=== PATIENT | male | born 1990 | race Two or more races ===

== ENCOUNTER 2019-05-01 03:54 | Observation (INO) | payer MEDICAID ==
[~2019-05-01] VITALS: Ht 170.2 cm; Wt 62.6 kg
[2019-05-01] MEDS ORDERED: LORazepam Inj 2mg/ml 1ml IV ONE (04:00)
--- NOTE | 2019-05-01 04:03 | Emergency Room Report ---
History of Present Illness General Chief Complaint: Nausea, Vomiting, and Diarrhea Source: Friend Present Illness HPI Is a 29-year-old male with some type of psychiatric history. He was brought in by girlfriend for altered mental status with vomiting shortness of breath. Patient had [place] some [place] the [place]. He started throwing up and acting abnormal. They brought him here. Unable to get much of history from this patient. He complained abdominal pain. He said he is short of breath and tried and vomit. Denies any bloody emesis. No diarrhea. Onset tonight. No other history obtained from this patient. History is from his girlfriend. Allergies: Coded Allergies: No Known Allergies (Unverified , 05/01/19) Patient History Past Medical History: see triage record, old chart reviewed, psych hx Past Surgical History: other Pertinent Family History: none Social History: Reports: smoking Immunizations: other Reviewed Nursing Documentation: PMH: Agreed; PSxH: Agreed Review of Systems Eye: Denies: eye pain, blurred vision ENT: Denies: ear pain, nose congestion, throat swelling Respiratory: Denies: cough, shortness of breath Cardiovascular: Denies: chest pain, palpitations Gastrointestinal: Reports: abdominal pain, nausea, vomiting; Denies: diarrhea Musculoskeletal: Denies: back pain, joint pain Skin: Denies: rash Neurological: Denies: headache, numbness Endocrine: Denies: increased thirst, increased urine Hematologic/Lymphatic: Denies: easy bruising All Other Systems: negative except mentioned in HPI Physical Exam Sp02 EP Interpretation: reviewed, normal General Appearance: well appearing, no apparent distress, alert Head: normocephalic, atraumatic Eyes: bilateral eye PERRL, bilateral eye EOMI ENT: hearing grossly normal, normal pharynx Neck: full range of motion, supple, no meningismus Respiratory: chest non-tender, lungs clear, normal breath sounds Cardiovascular #1: regular rate, rhythm, no murmur Gastrointestinal: no mass, no organomegaly, no bruit, non-distended, tenderness - Diffuse, decreased bowel sounds Musculoskeletal: back normal, normal range of motion Psychiatric: anxious Medical Decision Making Diagnostic Impression: Primary Impression: Abdominal pain Qualified Codes: R10.84 - Generalized abdominal pain Additional Impression: 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 He was very anxious. This is probably secondary induced by his cannabis use. He is sleeping comfortably now. Vital signs are stable. No evidence of toxicity. Will discharge home once he is better. Status: improved Disposition: HOME, SELF-CARE Condition: Stable Additional Instructions: Follow-up with in 7 days. Return if symptoms worsen. Leonardo Quiroz MD May 01, 2019 04:02
[2019-05-01 04:10] VITALS: BP 142/83
--- NOTE | 2019-05-01 04:10 | NUR ---
ED Nurse Note: Pt is AAOX1, vss, with no injuries noted. Pt came to ER c/o n/v and abd pain since 0300. Per significant other, pt was smoking weed, unk amount, and was vomiting afterwards. Pt is activly vomiting and bearing down. Per signficant other, pt was short of breath.
[2019-05-01] MEDS ORDERED: Ketorolac 30mg Inj IV ONE (04:15)
[2019-05-01 04:19] LABS: ANION GAP 11 mmol/L (5-15); BLOOD UREA NITROGEN 8 mg/dL (7-18); CALCIUM 9.3 MG/DL (8.5-10.1); CARBON DIOXIDE 27 MMOL/L (21-32); CHLORIDE 105 MMOL/L (98-107); CREATININE 1.1 MG/DL (0.55-1.30); POTASSIUM 3.6 MMOL/L (3.5-5.1); SODIUM 143 MMOL/L (136-145)
--- NOTE | 2019-05-01 04:20 | NUR ---
ED Nurse Note: Blood and urine sent to lab.
[2019-05-01 04:21] LABS: ALANINE AMINOTRANSFERASE 21 U/L (12-78); ALBUMIN/GLOBULIN RATIO 1.3 (1.0-2.7); ALKALINE PHOSPHATASE 113 U/L (46-116); ASPARTATE AMINO TRANSFERASE 18 U/L (15-37); BILIRUBIN,TOTAL 0.3 MG/DL (0.2-1.0)
[2019-05-01 04:22] LABS: EOSINOPHILS % (AUTO) 1.4 % (0.0-3.0); HEMATOCRIT 43.2 % (42.0-52.0); HEMOGLOBIN 15.8 G/DL (14.2-18.0); LYMPHOCYTES % (AUTO) 22.6 % (20.0-45.0); MEAN CORPUSCULAR VOLUME 89 FL (80-99); PLATELET COUNT 272 K/UL (150-450); RED BLOOD COUNT 4.83 M/UL (4.70-6.10); RED CELL DISTRIBUTION WIDTH 10.1 % (11.6-14.8); WHITE BLOOD COUNT 14.4 K/UL (4.8-10.8)
--- NOTE | 2019-05-01 04:25 | NUR ---
ED Nurse Note: Pt makes very loud throat noise when he wakes with very secretions. Suction is used to clear any obstructions. Minimal secretions collected.
--- NOTE | 2019-05-01 04:32 | NUR ---
ED Nurse Note: Pt no longer vomiting and bearing down. Pt is resting.
[2019-05-01 04:45] LABS: APPEARANCE,URINE CLEAR; BILIRUBIN, URINE NEGATIVE (NEGATIVE); GLUCOSE, URINE (UA) NEGATIVE (NEGATIVE); KETONES,URINE 1+ (NEGATIVE); LEUKOCYTE ESTERASE ,URINE NEGATIVE (NEGATIVE); NITRITE,URINE NEGATIVE (NEGATIVE); PH,URINE 6 (4.5-8.0); UROBILINOGEN,URINE 1 MG/DL (0.0-1.0)
[2019-05-01 04:52] LABS: COLOR,URINE YELLOW; PROTEIN,URINE NEGATIVE (NEGATIVE)
--- NOTE | 2019-05-01 05:20 | NUR ---
Araseli watson in EDM - 05/01/19 at 0520 by [email or web address] ED Nurse Note: Pt is resti
--- NOTE | 2019-05-01 05:20 | NUR ---
ED Nurse Note: Pt is resti
--- NOTE | 2019-05-01 05:33 | NUR ---
ED Nurse Note: Pt contiues to makes very loud throat noise when he wakes with very secretions.
--- NOTE | 2019-05-01 06:17 | NUR ---
ED Nurse Note: Pt resting at this time.
[2019-05-01] MEDS ORDERED: Promethazine HCl 25 MG in NS 55 ML IVPB STA (06:26)
--- NOTE | 2019-05-01 06:30 | NUR ---
ED Nurse Note: Pt vomited 15ml and went back to sleep.
--- NOTE | 2019-05-01 07:10 | NUR ---
Araseli watson in ED - 05/01/19 at 0710 by [email or web address] HAND-OFF: Report given to
--- NOTE | 2019-05-01 07:10 | NUR ---
HAND-OFF: Report given to
[2019-05-01 07:15] VITALS: BP 142/65
--- NOTE | 2019-05-01 07:20 | NUR ---
ED Nurse Note: PT RESTING ON BED AND STILL UNABLE TO AMBULATE AT THIS TIME. NSR ON INFORMATION COORDINATOR AND RESPIRATIONS ARE EVEN AND NON LABORED.
--- NOTE | 2019-05-01 08:26 | NUR ---
ED Nurse Note: TRIED TO CALL BROTHER TURNER ACUNA. NO ANSWER, LEFT A VOICEMAIL. [phone].
[2019-05-01 09:10] VITALS: BP 117/56
[2019-05-01 11:00] VITALS: BP 119/65
--- NOTE | 2019-05-01 11:57 | NUR ---
ED Nurse Note: PT TRANSPORTED TO MED SURG UNIT WITH ALL HIS BELONGINGS SENT. PT IS STABLE.
[2019-05-01] MEDS ORDERED: Metoclopramide 10mg/2ml Inj IVP PRN (12:15)
[2019-05-01] MEDS ORDERED: Morphine Sulfate 2mg/ml Inj(IV/IM USE ONLY) IVP PRN (12:15)
[2019-05-01] MEDS ORDERED: Miralax 17gm pkt ORAL PRN (12:15)
[2019-05-01] MEDS ORDERED: LORazepam Inj 2mg/ml 1ml IV PRN (12:15)
[2019-05-01] MEDS ORDERED: Nitroglycerin Subl 0.4mg tab SL PRN (12:15)
--- NOTE | 2019-05-01 12:57 | NUR ---
NURSE NOTES: Pt arrived from ER in altered state is able to answer questions when awake. Quickly falls asleep while talking. Pt verbalized chest pain Dr Oneil made aware . DR asked if ekg or troponin level needed to be drawn, Dr Oneil replied no gave orders for D5 1/2 NS at 75 cc / hour. Place pt NPO. Pt is having dry heaves, turns and spits on self. Pt is sleeping but arouses when name is called. Unable to fully cooperate with admission questions, pt does not stay awake long enough to respond. Oxygen placed on pt at 2 liters , provided with basin for possible vomitus.
--- NOTE | 2019-05-01 13:10 | NUR ---
NURSE NOTES: Call placed to Dr Chris voicemail left for Dr to return call to facility.
[2019-05-01] MEDS: D5 1/2NS 1,000 ML IV SCH (14:07)
--- NOTE | 2019-05-01 14:36 | NUR ---
NURSE NOTES: Pt is currently sleeping vomitus times 2 red in color, with possible digested blood particles, . Charge Nurse made aware and assessed output. No odor. Complaining of chest pain as well as abdominal pain. made aware of pt verbalizations of chest Pain 10/10 radiating to his stomach. , ER did not render EKG aware did not give orders to render one, troponin level. made aware per report of ER nurse pt became n/v after smoking "weed" . Pt denied anything other than smoking weed, any other illicit, substance. Pt given Morphine 2 mg and Zofran IV push. Currently sleeping. Dr Chris did not give any further instructions or orders. Call light in reach, linens completely changed. Rt IV inner forearm dislodge. Pt has left ac intact
--- NOTE | 2019-05-01 15:46 | History & Physical ---
History and Physical History & Physicial Dictated for Int Med-Dr Chris no. [id number] Bao Ortiz MD May 01, 2019 15:46
[2019-05-01 16:00] VITALS: BP 156/86
--- NOTE | 2019-05-01 17:22 | Diagnostic Imaging Report ---
Indication: Abdominal pain, elevated white blood cells Technique: Siddiqi-scale and duplex images of the upper abdomen were obtained Comparison: none Findings: Gallbladder is unremarkable, without stones, wall thickening, nor pericholecystic fluid. Sonographic Vera's sign is negative. Common bile duct measures 6 mm in diameter. No intrahepatic biliary ductal dilatation. Liver demonstrates normal echogenicity, no focal abnormality. Portal vein and hepatic veins are patent. Pancreas is unremarkable. Spleen is unremarkable. Left kidney measures 10.5 cm in length. Right kidney measures 9.5 cm length. Both kidneys demonstrate normal echogenicity. There is no hydronephrosis. No focal abnormality . Non-aneurysmal abdominal aorta . Impression: Negative
--- NOTE | 2019-05-01 17:39 | NUR ---
NURSE NOTES: Pt girlfriend is here, attempted to ask girl friend if she knew what pt took in addition to Marijuana pt has some hallucinations " He just smokes allot of cigarettes. " " We just started dating and we were together but he just had cigarettes. " Pt girlfriend quickly left room and returned in 2 hours. " Can I take him home now' Girlfriend informed that pt does not have an order to go as yet. Pt asked if scenario writer could answer girl friends questions earlier in shift. Call placed to Dr Oneil to inform him that pt had vomitus x 2 appearing like digested blood. Awaiting return call
--- NOTE | 2019-05-01 18:05 | NUR ---
NURSE NOTES: Dr Oneil did not give further orders in regards to vomitus, NNO
--- NOTE | 2019-05-01 19:05 | NUR ---
NURSE NOTES: Dr Ruth phoned to be made aware that pt had episode of vomitus x two with appearance of digested blood
--- NOTE | 2019-05-01 19:54 | NUR ---
NURSE NOTES: Received patient in bed, asleep, no acute distress noted, IV site is clean dry and intact, call light is within reach, bed is in low position, locked and alarm is on. Will continue to monitor for comfort and safety.
[2019-05-01 20:00] VITALS: BP 102/60
--- NOTE | 2019-05-01 20:08 | NUR ---
HAND-OFF: Report given to Dianna PRO .
--- NOTE | 2019-05-01 20:11 | NUR ---
NURSE NOTES: oncoming nurse, made aware that Dr was contacted in regards to chest pain NNO
[2019-05-01] MEDS: Heparin 5000 units/ml inj SUBQ SCH (21:12)
--- NOTE | 2019-05-01 22:15 | History and Physical Report ---
DATE OF ADMISSION: 05/01/2019 CHIEF COMPLAINT: The patient is a 29-year-old male, who presents with a chief complaint of altered mental status. HISTORY OF PRESENT ILLNESS: The patient apparently was at the beach earlier today. The patient smoked marijuana. The patient was brought in to [facility] by his girlfriend. She was complaining of shortness of breath. Much of the history and physical is obtained from the patient's chart and the patient's girlfriend. Upon arrival at [facility], the patient's girlfriend stated he was acting more altered than usual. The patient was having nausea and vomiting. The patient also was short of breath. The patient was admitted for altered mental status to rule out overdose. REVIEW OF SYSTEMS: Unable to assess secondary to the patient's mental status. PAST MEDICAL HISTORY: Denies other than some sort of psychiatric diagnosis. PAST SURGICAL HISTORY: The patient denies. CURRENT MEDICATIONS: Denies. ALLERGIES: No known drug allergies. SOCIAL HISTORY: The patient is single. Lives with his girlfriend. Tobacco and alcohol use are unknown. PHYSICAL EXAMINATION: VITAL SIGNS: Temperature 97.4, respirations 16, pulse 71 to 115, and blood pressure 125 to 142/73. GENERAL: The patient is a well-developed and well-nourished male, who is arousable however very drowsy. HEENT: Eyes, pupils are equal and responsive to light and accommodation. Extraocular movements are intact. NECK: Supple without lymphadenopathy. CHEST: Lungs are clear to auscultation bilaterally without wheezes or rales. CARDIOVASCULAR: Regular rhythm and rate. S1, S2 are normal without murmurs, rubs, or gallops. ABDOMEN: Soft, nontender, and nondistended. Positive bowel sounds. No evidence of hepatosplenomegaly. Currently, no rebound or guarding noted. EXTREMITIES: Negative for clubbing, cyanosis, or edema. RECTAL/GENITAL: Not performed. GENITAL: Not performed. NEUROLOGIC: Cranial nerves II through XII are grossly intact without focal deficits. Motor strength is 5/5 bilaterally. Deep tendon reflexes are 2+ plantar. LABORATORY STUDIES: WBC 14.4, hemoglobin 15.8 hematocrit 43.2, and platelets 272,000. Sodium 143, potassium 3.6, chloride 105, CO2 27, BUN 8, creatinine 1.1, and glucose 115. Urine toxicology was positive for marijuana. Urinalysis showed 1+ ketones. ASSESSMENT: This is a 29-year-old male. 1. Altered mental status. 2. Nausea with vomiting. 3. Shortness of breath. TREATMENT: 1. Altered mental status. This may be secondary to marijuana use as above. Marijuana may have been laced with other substances including fentanyl. Urine drug screen was negative for drugs abuse. 2. Nausea/vomiting. The patient is currently NPO. The patient is receiving intravenous fluids. 3. Shortness of breath. This may be secondary to nausea and vomiting as above. Bao Ortiz M.D. DR: GLENNA JOB#: [id number] CC:
[2019-05-02] VITALS: BP 108/48
[2019-05-02] MEDS: D5 1/2NS 1,000 ML IV SCH (01:36)
[2019-05-02 04:00] VITALS: BP 111/56
[2019-05-02 06:45] LABS: BASOPHILS % (AUTO) 0.4 % (0.0-2.0); HEMATOCRIT 39.3 % (42.0-52.0); HEMOGLOBIN 13.9 G/DL (14.2-18.0); LYMPHOCYTES % (AUTO) 18.2 % (20.0-45.0); MEAN CORPUSCULAR VOLUME 91 FL (80-99); MONOCYTES % (AUTO) 6.9 % (1.0-10.0); NEUTROPHILS % (AUTO) 73.5 % (45.0-75.0); PLATELET COUNT 218 K/UL (150-450); RED CELL DISTRIBUTION WIDTH 10.3 % (11.6-14.8); WHITE BLOOD COUNT 8.6 K/UL (4.8-10.8)
[2019-05-02 06:54] LABS: ALANINE AMINOTRANSFERASE 18 U/L (12-78); ALBUMIN 3.1 G/DL (3.4-5.0); ALBUMIN/GLOBULIN RATIO 1.3 (1.0-2.7); ALKALINE PHOSPHATASE 78 U/L (46-116); AMYLASE 204 U/L (25-115); ANION GAP 7 mmol/L (5-15); ASPARTATE AMINO TRANSFERASE 17 U/L (15-37); BILIRUBIN,TOTAL 0.7 MG/DL (0.2-1.0); BLOOD UREA NITROGEN 7 mg/dL (7-18); CALCIUM 8.1 MG/DL (8.5-10.1); CARBON DIOXIDE 27 MMOL/L (21-32); CHLORIDE 108 MMOL/L (98-107); CREATININE 0.8 MG/DL (0.55-1.30); POTASSIUM 3.2 MMOL/L (3.5-5.1); SODIUM 142 MMOL/L (136-145)
--- NOTE | 2019-05-02 07:02 | NUR ---
HAND-OFF: Report given to [facility] PRO.
--- NOTE | 2019-05-02 07:30 | NUR ---
NURSE NOTES: Received pt from [facility]. Pt is sleeping. pt is in RA, no SOB or acute respiratory distress noted. pt has intact iv access LAC 18G is running well. pt is NPO. all needs attended, bed is locked and is in the lowest position, call light within easy reach. will continue to monitor.
[2019-05-02 08:00] VITALS: BP 110/74
[2019-05-02] MEDS: Heparin 5000 units/ml inj SUBQ SCH (08:48)
[2019-05-02] MEDS ORDERED: Pantoprazole Inj IV SCH (09:00)
--- NOTE | 2019-05-02 09:50 | NUR ---
NURSE NOTES: Dr Oneil gave orders for potassium 40 meq iv .
--- NOTE | 2019-05-02 11:37 | Consultation ---
History of Present Illness General Date patient seen: May 02, 2019 Chief Complaint: Nausea, Vomiting, and Diarrhea Present Illness HPI 29-year-old male with psychiatric history brought in by girlfriend for altered mental status with vomiting. Patient had smoked some marijuana and started throwing up and acting abnormal. He complained abdominal pain. No diarrhea. Onset tonight. Allergies: Coded Allergies: No Known Allergies (Unverified , 05/01/19) Patient History Healthcare decision maker Resuscitation status Full Code Advanced Directive on File Past Medical/Surgical History Past Medical/Surgical History: (1) Psychiatric disorder Review of Systems All Other Systems: negative except mentioned in HPI Physical Exam General Appearance: WD/WN Lines, tubes and drains: peripheral HEENT: normocephalic, atraumatic Neck: non-tender, normal alignment Respiratory/Chest: chest wall non-tender, lungs clear Breasts: no masses Cardiovascular/Chest: normal rate Abdomen: normal bowel sounds, non tender Genitourinary/Rectal: normal genital exam Last 24 Hour Vital Signs Date Time Temp Pulse Resp B/P (MAP) Pulse Ox O2 Delivery O2 Flow Rate FiO2 05/02/19 09:00 Room Air 05/02/19 08:00 98.1 60 19 110/74 (86) 97 05/02/19 04:00 98.3 66 18 111/56 (74) 100 05/02/19 00:00 98.7 65 18 108/48 (68) 98 05/01/19 21:00 Room Air 05/01/19 20:00 98.7 63 18 102/60 (74) 90 05/01/19 16:00 98.2 85 18 156/86 (109) 97 05/01/19 12:35 Nasal Cannula 2.0 05/01/19 11:57 98.3 84 16 108/77 100 Room Air Intake and Output 05/01/19 05/02/19 18:59 06:59 Intake Total 881 ml Balance 881 ml Intake IV Total 881 ml # Voids 1 Laboratory Tests Test 05/02/19 05:10 White Blood Count 8.6 K/UL (4.8-10.8) Red Blood Count 4.30 M/UL (4.70-6.10) L Hemoglobin 13.9 G/DL (14.2-18.0) L Hematocrit 39.3 % (42.0-52.0) L Mean Corpuscular Volume 91 FL (80-99) Mean Corpuscular Hemoglobin 32.3 PG (27.0-31.0) H Mean Corpuscular Hemoglobin Concent 35.3 G/DL (32.0-36.0) Red Cell Distribution Width 10.3 % (11.6-14.8) L Platelet Count 218 K/UL (150-450) Mean Platelet Volume 5.4 FL (6.5-10.1) L Neutrophils (%) (Auto) 73.5 % (45.0-75.0) Lymphocytes (%) (Auto) 18.2 % (20.0-45.0) L Monocytes (%) (Auto) 6.9 % (1.0-10.0) Eosinophils (%) (Auto) 1.0 % (0.0-3.0) Basophils (%) (Auto) 0.4 % (0.0-2.0) Activated Partial Thromboplast Time 28 SEC (23-33) Sodium Level 142 MMOL/L (136-145) Potassium Level 3.2 MMOL/L (3.5-5.1) L Chloride Level 108 MMOL/L (98-107) H Carbon Dioxide Level 27 MMOL/L (21-32) Anion Gap 7 mmol/L (5-15) Blood Urea Nitrogen 7 mg/dL (7-18) Creatinine 0.8 MG/DL (0.55-1.30) Estimat Glomerular Filtration Rate > 60 mL/min (>60) Glucose Level 84 MG/DL (74-106) Calcium Level 8.1 MG/DL (8.5-10.1) L Total Bilirubin 0.7 MG/DL (0.2-1.0) Aspartate Amino Transf (AST/SGOT) 17 U/L (15-37) Alanine Aminotransferase (ALT/SGPT) 18 U/L (12-78) Alkaline Phosphatase 78 U/L (46-116) Total Protein 5.5 G/DL (6.4-8.2) L Albumin 3.1 G/DL (3.4-5.0) L Globulin 2.4 g/dL Albumin/Globulin Ratio 1.3 (1.0-2.7) Amylase Level 204 U/L (25-115) H Lipase 333 U/L (73-393) Height (Feet): 5 Height (Inches): 7.00 Weight (Pounds): 138 Medications Current Medications Medications (Trade) Dose Ordered Sig/Bri Route PRN Reason Start Time Stop Time Status Last Admin Dose Admin Acetaminophen (Tylenol) 650 mg Q4H PRN ORAL fever 05/01/19 12:15 05/31/19 12:14 Dextrose (Dextrose 50%) 25 ml Q30M PRN IV Hypoglycemia 05/01/19 12:15 05/31/19 12:14 Dextrose (Dextrose 50%) 50 ml Q30M PRN IV Hypoglycemia 05/01/19 12:15 05/31/19 12:14 Diphenhydramine HCl (Benadryl) 25 mg Q6H PRN ORAL Itching/Pruritis 05/01/19 12:15 05/31/19 12:14 Heparin Sodium (Porcine) (Heparin 5000 units/ml) 5,000 units EVERY 12 HOURS SUBQ 05/01/19 21:00 05/31/19 20:59 05/02/19 08:48 Lorazepam (Ativan 2mg/ml 1ml) 1 mg Q4H PRN IV agitation 05/01/19 12:15 05/08/19 12:14 Metoclopramide HCl (Reglan) 10 mg Q6H PRN IVP servere nauasea 05/01/19 12:15 05/31/19 12:14 05/01/19 14:05 Morphine Sulfate (Morphine Sulfate) 2 mg Q4H PRN IVP severe Pain (Pain Scale 7-10) 05/01/19 12:15 05/08/19 12:14 05/01/19 14:06 Nitroglycerin (Ntg) 0.4 mg Q5M X 3 DOSES PRN SL Prn Chest Pain 05/01/19 12:15 05/31/19 12:14 Ondansetron HCl (Zofran) 4 mg Q6H PRN IVP Nausea & Vomiting 05/01/19 12:15 05/31/19 12:14 Pantoprazole (Protonix) 40 mg DAILY IV 05/02/19 09:00 06/01/19 08:59 05/02/19 08:45 Polyethylene Glycol (Miralax) 17 gm HSPRN PRN ORAL Constipation 05/01/19 12:15 05/31/19 12:14 Potassium Chloride 100 ml @ 100 mls/hr Q1H IVPB 05/02/19 10:15 05/02/19 14:14 05/02/19 10:16 Promethazine HCl (Phenergan) 25 mg Q6H PRN IM Refractory N/V 05/01/19 12:15 05/06/19 12:14 Sodium Chloride 1,000 ml @ 300 mls/hr Q3H20M IV 05/01/19 07:00 05/31/19 06:59 05/02/19 08:46 Temazepam (Restoril) 15 mg HSPRN PRN ORAL Insomnia 05/01/19 12:15 05/08/19 12:14 Assessment/Plan Problem List: (1) 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
[2019-05-02] MEDS ORDERED: ZOFRAN4 M1 ORAL (11:39)
[2019-05-02 12:00] VITALS: BP 122/85
[2019-05-02] MEDS ORDERED: D5 1/2NS w/KCl 20mEq 1,000 ML IV SCH (13:00)
--- NOTE | 2019-05-02 14:51 | NUR ---
NURSE NOTES: gave orders to discharge pt after potassium is complete. Pt does not have any nausea at this time. Pt made aware informed to eat soups for several days. Pt is alert and orientated today. Does not recall transfer from ER. States he only smoked Marijuana, and drank alcohol on an empty stomach. Pt is stable
--- NOTE | 2019-05-02 15:41 | NUR ---
CASE MANAGEMENT:REVIEW 30 YR OLD MALE PRESENTED TO ER CC; NAUSEA,VOMITING AND DIARRHEA SI: INTRACTABLE VOMITING 97.4 115 16 125/71 100% ON RA WBC+14.4 URINE(+) POSITIVE IS: 1L NS BOLUS X2 IV ATIVAN IV ZOFRAN IV TORADOL : TO MED/SURG [facility]
--- NOTE | 2019-05-02 15:43 | General Progress Note ---
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 ICD Codes: F12.929 - Cannabis use, unspecified with intoxication, unspecified; F12.980 - Cannabis use, unspecified with anxiety disorder SNOMED: 99799122, 80112664 (4) Abdominal pain ICD Codes: R10.9 - Unspecified abdominal pain SNOMED: 71359769, 52666084 Qualifiers: Qualified Codes: R10.84 - Generalized abdominal pain Assessment/Plan: improving tolerated diet ok to dc GI stand point Subjective ROS Limited/Unobtainable: Yes Allergies: Coded Allergies: No Known Allergies (Unverified , 05/01/19) Objective Last 24 Hour Vital Signs Date Time Temp Pulse Resp B/P (MAP) Pulse Ox O2 Delivery O2 Flow Rate FiO2 05/02/19 12:00 98.2 62 19 122/85 (97) 97 05/02/19 09:00 Room Air 05/02/19 08:00 98.1 60 19 110/74 (86) 97 05/02/19 04:00 98.3 66 18 111/56 (74) 100 05/02/19 00:00 98.7 65 18 108/48 (68) 98 05/01/19 21:00 Room Air 05/01/19 20:00 98.7 63 18 102/60 (74) 90 05/01/19 16:00 98.2 85 18 156/86 (109) 97 Intake and Output 05/01/19 05/02/19 19:00 07:00 Intake Total 881 ml Balance 881 ml Intake IV Total 881 ml # Voids 1 Laboratory Tests 05/02/19 05:10: White Blood Count 8.6, Red Blood Count 4.30L, Hemoglobin 13.9L, Hematocrit 39.3L , Mean Corpuscular Volume 91, Mean Corpuscular Hemoglobin 32.3H, Mean Corpuscular Hemoglobin Concent 35.3, Red Cell Distribution Width 10.3L, Platelet Count 218, Mean Platelet Volume 5.4L, Neutrophils (%) (Auto) 73.5, Lymphocytes (%) (Auto) 18.2L, Monocytes (%) (Auto) 6.9, Eosinophils (%) (Auto) 1.0, Basophils (%) (Auto) 0.4, Activated Partial Thromboplast Time 28, Sodium Level 142, Potassium Level 3.2L, Chloride Level 108H, Carbon Dioxide Level 27, Anion Gap 7, Blood Urea Nitrogen 7, Creatinine 0.8, Estimat Glomerular Filtration Rate > 60, Glucose Level 84, Calcium Level 8.1L, Total Bilirubin 0.7 , Aspartate Amino Transf (AST/SGOT) 17, Alanine Aminotransferase (ALT/SGPT) 18, Alkaline Phosphatase 78, Total Protein 5.5L, Albumin 3.1L, Globulin 2.4, Albumin /Globulin Ratio 1.3, Amylase Level 204H, Lipase 333 Height (Feet): 5 Height (Inches): 7.00 Weight (Pounds): 138 General Appearance: alert EENT: normal ENT inspection Neck: supple Cardiovascular: normal rate Respiratory/Chest: decreased breath sounds Abdomen: normal bowel sounds, non tender, soft Extremities: non-tender Gregorio Arrieta MD May 02, 2019 15:43
[2019-05-02 16:00] VITALS: BP 117/78
--- NOTE | 2019-05-02 16:42 | NUR ---
NURSE NOTES: pt has discharge order, all D/C assessments and instructions done and pt verbally confirmed to understand all. pt is stable, V/S stable. no complain of nausea and vomiting. all belongings are with pt and he signed belongings list. iv access D/C. prescription sent to pharmacy and med given to pt. pt left hospital.
--- NOTE | 2019-05-02 17:49 | NUR ---
NURSE NOTES: Pt left discharge folder and medications. Verbal message left for pt to call facility. Message left on phone number listed for brother as well from facesheet.
== END 2019-05-02 16:47 | disposition home or self-care (01) ==
LOC: EDBD 03:54 → EMR 04:04 → 3E 10:59 → EDBEDREQ 11:35 → 3E 12:00
DX: R41.82 Altered mental status, unspecified (principal); F12.980 Cannabis use, unspecified with anxiety disorder; R11.2 Nausea with vomiting, unspecified; R06.02 Shortness of breath; R10.84 Generalized abdominal pain; F99 Mental disorder, not otherwise specified
CPT/HCPCS: 36415; 76700; 80053; 80307; 81003; 82150; 83690; 85025; 85730; 96361; 96365; 96375; 96376; G0480; J1644; J1885; J2270; J2405; J2550; J2765; J3480; S0164; Z7502; 99284; J7030

== ENCOUNTER 2020-02-26 19:50 | Emergency (ER) | payer SELFPAY ==
[~2020-02-26] VITALS: Ht 157.5 cm; Wt 65.8 kg
[~2020-02-26 19:50] MED LIST: ZOFRAN4 M1 ORAL
[2020-02-26 20:05] VITALS: BP 137/77
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
--- NOTE | 2020-02-26 20:11 | NUR ---
ED Nurse Note: pt taken to CT in stable condition
[2020-02-26] MEDS ORDERED: Tetanus/Diptheria/Pertussis IM ONE (20:15)
--- NOTE | 2020-02-26 20:30 | NUR ---
ED Nurse Note: pt returned from CT in stable condition
--- NOTE | 2020-02-26 20:32 | NUR ---
ED Nurse Note: all medications administered, pt tolerated well no ss of distress noted. will continue to monitor.
[2020-02-26] MEDS ORDERED: TYLENOL325 MG ORAL (20:37)
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
--- NOTE | 2020-02-26 20:59 | NUR ---
ED Nurse Note: ERMD at bedside
[2020-02-26 21:05] VITALS: BP 125/76
--- NOTE | 2020-02-26 21:05 | NUR ---
ER DISCHARGE NOTE: Patient is cleared to be discharged home per ERMD, pt is aox4, 98% on room air, with stable vital signs. pt was given dc and prescription instructions, pt was able to verbalize understanding, pt id band removed. pt is able to ambulate with steady gait. pt took all belongings.
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
== END 2020-02-26 21:05 | disposition home or self-care (01) ==
LOC: EMR 20:15
DX: S09.90XA Unspecified injury of head, initial encounter (principal); Y09 Assault by unspecified means; Y93.9 Activity, unspecified; Y92.9 Unspecified place or not applicable
CPT/HCPCS: 70450; 90471; 90715; 99284